=== PATIENT | female | born 1990 | race Caucasian/White ===

== ENCOUNTER → 2017-04-29 | Outpatient (CLI) | payer BC, OTHER ==
[~2017-04-29] MED LIST: PANT40TA PO; PRLSR20 PO
== END | disposition home or self-care (01) ==
LOC: C.PATH 17:40
PROVIDERS: ATTEND Obstetrics & Gynecology Gynecology
DX: R87.610 Atypical squamous cells of undetermined significance on cytologic smear of cervix (ASC-US) (principal)